=== PATIENT | female | born 1985 | race African-American/Black ===

== ENCOUNTER 2017-01-19 23:14 | Emergency (ER) | payer SELFPAY ==
[~2017-01-19 23:14] MED LIST: HYDR-971 PO; PENI250T85 PO
--- NOTE | 2017-01-19 23:22 | PHYS DOC ---
Past History Past Medical History: Other Additional Past Surgical Histo: laprascopic ovarian surgery Smoking: Cigarettes Alcohol Use: None Drug Use: Marijuana Adult General Chief Complaint Chief Complaint: Dental pain HPI HPI Patient is a 31 year old female who presents with dental pain. She was seen here in October for the same pain at that time was placed on penicillin and hydrocodone. She states this been back for 4 days. She states it hurts on the left side of her face, ear, eye. No nausea vomiting. No known fevers. She states she saw dentist but "they can't do anything until I get the infection treated". NO difficulty swallowing. No drooling. Review of Systems Review of Systems Constitutional: Denies fever or chills HENT: Denies nasal congestion or sore throat. Left jaw pain (upper) and left ear ache. Respiratory: Denies cough or shortness of breath GI: Denies abdominal pain, nausea, vomiting, bloody stools or diarrhea Neurologic: Denies headache, focal weakness or sensory changes Allergies Allergies Allergies Coded Allergies Type Severity Reaction Last Updated Verified No Known Drug Allergies 10/15/16 No Physical Exam Physical Exam Constitutional: Well developed, well nourished, no acute distress, non-toxic appearance. Holding an ice pack on the left side of her face. HENT: Normocephalic, atraumatic, bilateral external ears normal, oropharynx moist, no oral exudates, nose normal. Pain is left upper 3rd molar. No abscess detected. No buccal space swelling. No drooling; no stridor. Eyes: PERRLA, EOMI, conjunctiva normal, no discharge. Neck: Normal range of motion, no tenderness, supple, no stridor. Cardiovascular:Heart rate regular rhythm, no murmur Lungs & Thorax: Bilateral breath sounds clear to auscultation Skin: Warm, dry, no erythema, no rash. Extremities: No tenderness, no cyanosis, no clubbing, ROM intact, no edema. Neurologic: Alert and oriented X 3, normal motor function, normal sensory function, no focal deficits noted. Psychologic: Affect normal, judgement normal, mood normal. Current Patient Data Vital Signs Vital Signs Date Time Temp Pulse Resp B/P (MAP) Pulse Ox O2 Delivery O2 Flow Rate FiO2 01/19/17 23:24 97.6 108 20 97 Room Air BP 128/112 Course & Med Decision Making Course & Med Decision Making Evaluated patient; no evidence of acute airway compromise or abscess. Will dose with Toradol here (LMP one week ago-denies ) and amoxicillin here. Rx: Peridex, amox, Tramadol and naprosyn. Need to contact dentist again. Dragon Disclaimer Dragon Disclaimer This chart was dictated in whole or in part using Voice Recognition software in a busy, high-work load, and often noisy Emergency Department environment. It may contain unintended and wholly unrecognized errors or omissions. Departure Departure: Disposition: HOME, SELF-CARE Condition: GOOD Referrals: PCP,NO (PCP) Scripts Chlorhexidine Gluconate (PERIDEX) 15 Ml Mouthwash 15 ML PO BID for 7 Days, #946 ML Prov: DEIDRE ROMAN MD 01/19/17 Tramadol Hcl/Acetaminophen (TRAMADOL-ACETAMINOPHN 37.5-325) 1 Each Tablet 1 TAB PO Q4-6HRS Y for PAIN, #30 TAB Prov: DEIDRE ROMAN MD 01/19/17 Naproxen (NAPROSYN) 500 Mg Tablet 500 MG PO TID PRN Y for PAIN, #30 TAB Prov: DEIDRE ROMAN MD 01/19/17 Amoxicillin (AMOXICILLIN) 500 Mg Capsule 1 CAP PO TID, #30 CAP Prov: DEIDRE ROMAN MD 01/19/17 DEIDRE ROMAN MD January 19, 2017 23:22
[2017-01-19 23:24] VITALS: BP 128/112
[2017-01-19] MEDS ORDERED: CHLO15MO2 PO (23:33)
[2017-01-19] MEDS ORDERED: TRAM1TAB4 PO (23:33)
[2017-01-19] MEDS ORDERED: NAPR500T PO (23:33)
[2017-01-19] MEDS ORDERED: AMOX500C PO (23:33)
[2017-01-19] MEDS: KETOROLAC 60 MG/2 ML VIAL. IM ONE (23:39)
[2017-01-19] MEDS: AMOXICILLIN 500 MG CAPSULE PO ONE (23:39)
== END 2017-01-19 23:45 | disposition home or self-care (01) ==
LOC: ER 23:14
DX: K08.89 Other specified disorders of teeth and supporting structures (principal); F17.210 Nicotine dependence, cigarettes, uncomplicated; F12.10 Cannabis abuse, uncomplicated
CPT/HCPCS: 96372; 99283; J1885

== ENCOUNTER 2017-02-03 15:33 | Emergency (ER) | payer SELFPAY ==
[~2017-02-03 15:33] MED LIST changes: +AMOX500C PO; +CHLO15MO2 PO; +NAPR500T PO; +TRAM1TAB4 PO
[2017-02-03] MEDS ORDERED: PENI500T PO (16:38)
--- NOTE | 2017-02-03 16:38 | PHYS DOC ---
Past History Past Medical History: No Pertinent History Additional Past Surgical Histo: laprascopic ovarian surgery Smoking: Cigarettes Alcohol Use: None Drug Use: None Adult General Chief Complaint Chief Complaint: SORE THROAT HPI HPI 31-year-old female presenting to the emergency department with dental pain. Her pain is dull throbbing intermittent and nonradiating. She's had this pain for a few months and has not been able to have her Gus help her with this pain. Review of systems is negative for abdominal pain fevers chills chest pain or shortness of breath. All other review of systems is negative unless otherwise noted in history of present illness. Pertinent physical exam findings show no tongue elevation. No crepitus to palpation of the neck region. The patient does have an abscess on the inside of her roof of her mouth. There is no stridor present. She is able to swallow her secretions during my examination. ED course: 31-year-old female presenting with dental pain and dental abscess. Recommended the patient get into her dentist today or tomorrow. I prescribed penicillin I recommend ibuprofen and acetaminophen until that point. The patient was then discharged home in stable condition. They were to return if their symptoms worsened or if they were concerned for any reason. [id number] discharge instructions and return precautions were given. Patient's questions were answered to their satisfaction. Patient is comfortable plan. Review of Systems Review of Systems SEE ABOVE. Allergies Allergies Allergies Coded Allergies Type Severity Reaction Last Updated Verified No Known Drug Allergies 10/15/16 No Physical Exam Physical Exam Constitutional: Well developed, well nourished, no acute distress, non-toxic appearance. [] HENT: Normocephalic, atraumatic, bilateral external ears normal, oropharynx moist, no oral exudates, nose normal. [] Eyes: PERRLA, EOMI, conjunctiva normal, no discharge. [] Neck: Normal range of motion, no tenderness, supple, no stridor. [] Cardiovascular:Heart rate regular rhythm, no murmur [] Lungs & Thorax: Bilateral breath sounds clear to auscultation [] Abdomen: Bowel sounds normal, soft, no tenderness, no masses, no pulsatile masses. [] Skin: Warm, dry, no erythema, no rash. [] Back: No tenderness, no CVA tenderness. [] Extremities: No tenderness, no cyanosis, no clubbing, ROM intact, no edema. [] Neurologic: Alert and oriented X 3, normal motor function, normal sensory function, no focal deficits noted. [] Psychologic: Affect normal, judgement normal, mood normal. [] EKG EKG [] Radiology/Procedures Radiology/Procedures [] Course & Med Decision Making Course & Med Decision Making Pertinent Labs and Imaging studies reviewed. (See chart for details) [] Dragon Disclaimer Dragon Disclaimer This chart was dictated in whole or in part using Voice Recognition software in a busy, high-work load, and often noisy Emergency Department environment. It may contain unintended and wholly unrecognized errors or omissions. Departure Departure: Impression: Primary Impression: Pain, dental Additional Impression: Dental abscess Disposition: HOME, SELF-CARE Condition: STABLE Referrals: PCP,KAMILAH (PCP) MARLENE HAYDEN MD Patient Instructions: Dental Pain Additional Instructions: Thank you for allowing us to participate in your care today. I recommend you see a dentist today or tomorrow. Followup with your primary care physician in 3 days if your symptoms do not improve. If you do not have a primary care provider you can ask for a list of our primary care providers. Return to the emergency department you have any new or concerning findings. This should be evaluated by the primary care physician and any necessary consulting services for continued management within a few days after discharge. Return to emergency room if you have any new or concerning symptoms including but not limited to fever, chills, nausea, vomiting, intractable pain, any new rashes, chest pain, shortness of air, uncontrolled bleeding, difficulty breathing, and/or vision loss. Scripts Penicillin V Potassium (PENICILLIN V POTASSIUM) 500 Mg Tablet 1 TAB PO BID, #6 TAB Prov: KAREN RAMIREZ MD 02/03/17 Problem Qualifiers KAREN RAMIREZ MD February 03, 2017 16:38
[2017-02-03 16:50] VITALS: BP 141/86
== END 2017-02-03 16:50 | disposition home or self-care (01) ==
LOC: ER 15:33
DX: K04.7 Periapical abscess without sinus (principal); F17.210 Nicotine dependence, cigarettes, uncomplicated
CPT/HCPCS: 99283

== ENCOUNTER 2019-07-25 10:29 | Emergency (ER) | payer OTHER ==
[~2019-07-25 10:29] MED LIST changes: +HYDR-3165 PO; -HYDR-971 PO; +NAPR-683 PO; -NAPR500T PO; +PENI500T PO
--- NOTE | 2019-07-25 11:28 | PHYS DOC ---
Past History Past Medical History: Other Additional Past Medical Histor: hip dysplasia Past Surgical History: Other Additional Past Surgical Histo: laprascopic ovarian surgery Smoking: Cigarettes Alcohol Use: None Drug Use: None Adult General Chief Complaint Chief Complaint: HIP PAIN HPI HPI 34 yo female presents with left hip pain. It starting hurting her yesterday after work. She works at a fast food restaurant. She has had intermittent hip pain for many years. She had hip dysplasia as a child. She has been told she would need hip replacements a young age. She has been tolerating discomfort well most of the time, but when she woke up this morning she was unable to bear weight on this left leg. She feels like it swollen and she has had fluid drained from the hip joint in the past. She denies fever or chills. She denies falls or trauma. Review of Systems Review of Systems Constitutional: Denies fever or chills [] Eyes: Denies change in visual acuity, redness, or eye pain [] HENT: Denies nasal congestion or sore throat [] Respiratory: Denies cough or shortness of breath [] Cardiovascular: No additional information not addressed in HPI [] GI: Denies abdominal pain, nausea, vomiting, bloody stools or diarrhea [] : Denies dysuria or hematuria [] Musculoskeletal: Left hip pain[] Integument: Denies rash or skin lesions [] Neurologic: Denies headache, focal weakness or sensory changes [] Endocrine: Denies polyuria or polydipsia [] All other systems were reviewed and found to be within normal limits, except as documented in this note. Allergies Allergies Allergies Coded Allergies Type Severity Reaction Last Updated Verified No Known Drug Allergies 07/25/19 No Physical Exam Physical Exam Constitutional: Well developed, well nourished, no acute distress, non-toxic appearance. [] HENT: Normocephalic, atraumatic, bilateral external ears normal, oropharynx moist, no oral exudates, nose normal. [] Eyes: PERRLA, EOMI, conjunctiva normal, no discharge. [] Neck: Normal range of motion, no tenderness, supple, no stridor. [] Cardiovascular:Heart rate regular rhythm, no murmur [] Lungs & Thorax: Bilateral breath sounds clear to auscultation [] Abdomen: Bowel sounds normal, soft, no tenderness, no masses, no pulsatile masses. [] Skin: Warm, dry, no erythema, no rash. [] Back: No tenderness, no CVA tenderness. [] Extremities: Moderate to severe pain with palpation of the left lateral and anterior hip. No ecchymosis or obvious deformity.[] Neurologic: Alert and oriented X 3, normal motor function, normal sensory function, no focal deficits noted. [] Psychologic: Affect normal, judgement normal, mood normal. [] Current Patient Data Vital Signs Vital Signs Date Time Temp Pulse Resp B/P (MAP) Pulse Ox O2 Delivery O2 Flow Rate FiO2 07/25/19 10:58 97.8 101 18 99 Room Air EKG EKG [] Radiology/Procedures Radiology/Procedures [] Impressions: EXAM: Left hip and pelvis, 3 views. HISTORY: Pain. COMPARISON: None. FINDINGS: A frontal view of the pelvis and frontal and frog-leg views of the left hip are obtained. There is no fracture, dislocation or subluxation. There is marginal osteophyte formation involving the left femoral head. There is a tiny right os acetabulum. There are suspected bone islands within the right femoral head and left femoral head-neck junction. IMPRESSION: 1. Moderate osteoarthritis of the left hip with femoral head marginal osteophyte formation. 2. No acute osseous finding. Electronically signed by: Opal Goirdano MD (07/25/2019 11:59 AM) [facility] DICTATED AND SIGNED BY: OPAL GIORDANO MD DATE: 07/25/19 1159 CC: PONCHO NIXON DO; PCP,NO ~ Course & Med Decision Making Course & Med Decision Making Pertinent Labs and Imaging studies reviewed. (See chart for details) The patient's x-ray shows some arthritis with possible bone islands. I think the patient just overdid it and got her hip joint irritated. I have given her one [place] in the ED. I will discharge her on a short course of [place]. I will also advised further ibuprofen therapy and rest. She is stable for discharge at this time. [] Dragon Disclaimer Dragon Disclaimer This electronic medical record was generated, in whole or in part, using a voice recognition dictation system. Departure Departure: Impression: Primary Impression: Left hip pain Disposition: 01 HOME, SELF-CARE Condition: STABLE Referrals: PCP,NO (PCP) Patient Instructions: Hip Pain Scripts Hydrocodone Bit/Acetaminophen (NORCO 5-325 TABLET) 1 Each Tablet 1 TAB PO PRN Q6HRS PRN for PAIN, #10 TAB 0 Refills Prov: PONCHO NIXON DO 07/25/19 PONCHO NIXON DO Jul 25, 2019 11:28
[2019-07-25] MEDS ORDERED: HYDROcodone/APAP 7.5/325MG 1 TAB TABLET PO ONE (11:30)
[2019-07-25] MEDS ORDERED: NAPROXEN 500 MG TABLET PO ONE (11:30)
--- NOTE | 2019-07-25 12:01 | RAD ---
EXAM: Left hip and pelvis, 3 views. HISTORY: Pain. COMPARISON: None. FINDINGS: A frontal view of the pelvis and frontal and frog-leg views of the left hip are obtained. There is no fracture, dislocation or subluxation. There is marginal osteophyte formation involving the left femoral head. There is a tiny right os acetabulum. There are suspected bone islands within the right femoral head and left femoral head-neck junction. IMPRESSION: 1. Moderate osteoarthritis of the left hip with femoral head marginal osteophyte formation. 2. No acute osseous finding. Electronically signed by: Opal Giordano MD (07/25/2019 11:59 AM) [facility]
[2019-07-25] MEDS ORDERED: HYDR-3165 PO (12:43)
[2019-07-25 12:56] VITALS: BP 99/63
== END 2019-07-25 12:57 | disposition home or self-care (01) ==
LOC: ER 10:29
DX: M25.552 Pain in left hip (principal); M16.12 Unilateral primary osteoarthritis, left hip; F17.210 Nicotine dependence, cigarettes, uncomplicated
CPT/HCPCS: 73502; 99284

== ENCOUNTER 2020-01-22 13:31 | Emergency (ER) | payer OTHER ==
[~2020-01-22] VITALS: Ht 167.6 cm; Wt 70.4 kg
[2020-01-22 13:31] VITALS: BP 120/85
[2020-01-22] MEDS: AMOXICILLIN 250 MG CAPSULE PO ONE (14:34)
[2020-01-22] MEDS: HYDROcodone/APAP 5/325MG 1 TAB TABLET PO ONE (14:35)
[2020-01-22] MEDS ORDERED: AMOX500C PO (15:19)
[2020-01-22] MEDS ORDERED: NAPR-682 PO (15:19)
--- NOTE | 2020-01-22 15:19 | PHYS DOC ---
Past History Past Medical History: Ovarian Cyst, Other Additional Past Medical Histor: hip dysplasia Past Surgical History: Other Additional Past Surgical Histo: laprascopic ovarian surgery Smoking: Cigarettes Alcohol Use: None Drug Use: None General Adult EDM: Chief Complaint: Toothache HPI: HPI: Patient is a 34 YEARS old female who presented to the ER FOR EVALUATION of left upper tooth pain. Patient has dental caries in that area. She was chewing some food last night and her tooth broke,having pain since, called dentist but not able to get in so she was told to come here. Review of Systems: Review of Systems: Constitutional: Denies fever or chills Eyes: Denies change in visual acuity HENT: Denies nasal congestion or sore throat . positive for dental pain Respiratory: Denies cough or shortness of breath Cardiovascular: Denies chest pain or edema GI: Denies abdominal pain, nausea, vomiting, bloody stools or diarrhea : Denies dysuria Musculoskeletal: Denies back pain or joint pain Integument: Denies rash Neurologic: Denies headache, focal weakness or sensory changes Endocrine: Denies polyuria or polydipsia Lymphatic: Denies swollen glands Psychiatric: Denies depression or anxiety Heart Score: Risk Factors: Risk Factors: DM, Current or recent (<one month) smoker, HTN, HLP, family hi story of CAD, obesity. Risk Scores: Score 0 - 3: 2.5% MACE over next 6 weeks - Discharge Home Score 4 - 6: 20.3% MACE over next 6 weeks - Admit for Clinical Observation Score 7 - 10: 72.7% MACE over next 6 weeks - Early Invasive Strategies Current Medications: Current Meds: Current Medications Medications (Trade) Dose Ordered Sig/Zaheer Start Time Stop Time Status Last Admin Dose Admin Acetaminophen/ Hydrocodone Bitart (Lortab 5/325) 2 tab 1X ONCE 01/22/20 14:30 01/22/20 14:31 DC 01/22/20 14:35 2 TAB Amoxicillin (Amoxil) 1,000 mg 1X ONCE 01/22/20 14:30 01/22/20 14:31 DC 01/22/20 14:34 1,000 MG Allergies: Allergies: Allergies Coded Allergies Type Severity Reaction Last Updated Verified No Known Drug Allergies 07/25/19 No Physical Exam: PE: Constitutional: Well developed, well nourished, no acute distress, non-toxic appearance. [] HENT: Normocephalic, atraumatic, bilateral external ears normal, oropharynx moist, no oral exudates, nose normal. DENTAL DECAY LEFT UPPER JAW AREA, LEFT 1ST PREMOLAR ALREADY BROKEN OFF , ROOT STILL IN PLACE, LEFT 2ND PREMOLAR IS PARTIALLY BROKEN, THE TOOTH IS VERY LOOSE.NOT MUCH TISSUE ATTACHED TO GUM.. TENDER TO TOUCH... IT WAS PULLED OUT EASILY WHEN IT WAS EXAMINED, THE ROOT IS STILL IN PLACE. Eyes: PERRLA, EOMI, conjunctiva normal, no discharge. [] Neck: Normal range of motion, no tenderness, supple, no stridor. [] Cardiovascular:Heart rate regular rhythm, no murmur [] Lungs & Thorax: Bilateral breath sounds clear to auscultation [] Abdomen: Bowel sounds normal, soft, no tenderness, no masses, no pulsatile ma sses. [] Skin: Warm, dry, no erythema, no rash. [] Back: No tenderness, no CVA tenderness. [] Extremities: No tenderness, no cyanosis, no clubbing, ROM intact, no edema. [] Neurologic: Alert and oriented X 3, normal motor function, normal sensory function, no focal deficits noted. [] Psychologic: Affect normal, judgement normal, mood normal. [] Current Patient Data: Vital Signs: Vital Signs Date Time Temp Pulse Resp B/P (MAP) Pulse Ox O2 Delivery O2 Flow Rate FiO2 01/22/20 14:35 16 01/22/20 13:31 98.3 80 120/85 (97) 100 Room Air EKG: EKG: [] Radiology/Procedures: Radiology/Procedures: [] Course & Med Decision Making: Course & Med Decision Making Pertinent Labs and Imaging studies reviewed. (See chart for details) [] Dragon Disclaimer: Dragon Disclaimer: This electronic medical record was generated, in whole or in part, using a voice recognition dictation system. Departure Departure: Impression: Primary Impression: Dental decay Additional Impression: Dental caries of root surface Disposition: HOME/RESIDENCE PRIOR TO ADM Condition: STABLE Referrals: PCP,NO (PCP) please follow up with a dentist next week Patient Instructions: Dental Abscess, Dental Fracture Scripts Naproxen Sodium (ANAPROX DS) 550 Mg Tablet 1 TAB PO BID for dental pain for 15 Days, #30 TAB 0 Refills Prov: MARLENE HOROWITZ DO 01/22/20 Amoxicillin (AMOXICILLIN) 500 Mg Capsule 1 CAP PO TID for dental infection, #30 CAP Prov: MARLENE HOROWITZ DO 01/22/20 MARLENE HOROWITZ DO January 22, 2020 15:19
== END 2020-01-22 15:29 | disposition home or self-care (01) ==
LOC: ER 13:31
DX: K02.9 Dental caries, unspecified (principal); F17.210 Nicotine dependence, cigarettes, uncomplicated
CPT/HCPCS: 99283

== ENCOUNTER 2020-07-17 16:03 | Emergency (ER) | payer OTHER ==
[~2020-07-17] VITALS: Ht 167.6 cm; Wt 70.4 kg
[~2020-07-17 16:03] MED LIST changes: +NAPR-682 PO
[2020-07-17 17:05] VITALS: BP 127/58
[2020-07-17] MEDS ORDERED: cefTRIAXone IM 250 MG VIAL IM ONE (17:30)
[2020-07-17] MEDS ORDERED: metroNIDAZOLE 500 MG TABLET PO ONE (17:30)
[2020-07-17] MEDS ORDERED: ONDANSETRON ODT 4 MG TAB.RAPDIS PO ONE (17:30)
[2020-07-17] MEDS ORDERED: AZITHROMYCIN 250 MG TABLET. PO ONE (17:30)
--- NOTE | 2020-07-17 17:42 | PHYS DOC ---
Past History Past Medical History: No Pertinent History, Ovarian Cyst, Other Additional Past Medical Histor: hip dysplasia (SERGEY STOUT APRN) Past Surgical History: Other Additional Past Surgical Histo: laprascopic ovarian surgery (SERGEY STOUT APRN) Smoking: Cigarettes Alcohol Use: None Drug Use: None (SERGEY STOUT APRN) Adult General Chief Complaint Chief Complaint: SEXUALLY TRANSMITTED DISEASE HPI HPI Patient is a 35-year-old female patient presenting to the ED today for STD tr eatment. Patient reports she found the boyfriend with paperwork showing he was treated for STDs twice. Patient reports vaginal itching. Denies any chance she is . (SERGEY STOUT APRN) Review of Systems Review of Systems Constitutional: Denies fever or chills [] GI: Reports vaginal itching and concern for STDs denies abdominal pain, nausea, vomiting, bloody stools or diarrhea [] : Denies dysuria or hematuria [] Musculoskeletal: Denies back pain or joint pain [] Integument: Denies rash or skin lesions [] Neurologic: Denies headache, focal weakness or sensory changes [] All other systems were reviewed and found to be within normal limits, except as documented in this note. (SERGEY STOUT APRN) Current Medications Current Medications Current Medications Medications (Trade) Dose Ordered Sig/Zaheer Start Time Stop Time Status Last Admin Dose Admin Azithromycin (Zithromax) 1,000 mg 1X ONCE 07/17/20 17:30 07/17/20 17:32 DC 07/17/20 17:39 1,000 MG Ceftriaxone Sodium (Rocephin Im) 250 mg 1X ONCE 07/17/20 17:30 07/17/20 17:32 DC 07/17/20 17:39 250 MG Metronidazole (Flagyl) 2,000 mg 1X ONCE 07/17/20 17:30 07/17/20 17:32 DC 07/17/20 17:39 2,000 MG Ondansetron HCl (Zofran Odt) 4 mg 1X ONCE 07/17/20 17:30 07/17/20 17:32 DC 07/17/20 17:39 4 MG (SERGEY STOUT APRN) Allergies Allergies Allergies Coded Allergies Type Severity Reaction Last Updated Verified No Known Drug Allergies 07/25/19 No (SERGEY STOUT APRN) Physical Exam Physical Exam Constitutional: Well developed, well nourished, no acute distress, non-toxic appearance. [] Abdomen: Bowel sounds normal, soft, no tenderness, no masses, no pulsatile masses. [] Pelvic exam External pelvic appears normal, cervix is visualized, closed, no CMT, no adnexal tenderness, trace amount of white discharge in the vaginal vault Skin: Warm, dry, no erythema, no rash. [] Back: No tenderness, no CVA tenderness. [] Extremities: No tenderness, no cyanosis, no clubbing, ROM intact, no edema. [] Neurologic: Alert and oriented X 3, normal motor function, normal sensory function, no focal deficits noted. [] Psychologic: Affect normal, judgement normal, mood normal. [] (SERGEY STOUT APRN) Current Patient Data Vital Signs Vital Signs Date Time Temp Pulse Resp B/P (MAP) Pulse Ox O2 Delivery O2 Flow Rate FiO2 07/17/20 17:05 97 16 127/58 (81) 99 Room Air 07/17/20 17:02 98.0 Lab Results Laboratory Tests Test 07/17/20 17:30 POC Urine HCG, Qualitative hcg negative (Negative) (SERGEY STOUT APRN) EKG EKG [] (SERGEY STOUT APRN) Radiology/Procedures Radiology/Procedures [] (SERGEY STOUT APRN) Heart Score Risk Factors: Risk Factors: DM, Current or recent (<one month) smoker, HTN, HLP, family h istory of CAD, obesity. Risk Scores: Risk Factors: DM, Current or recent (<one month) smoker, HTN, HLP, family history of CAD, obesity. (SERGEY STOUT APRN) Course & Med Decision Making Course & Med Decision Making Pertinent Labs and Imaging studies reviewed. (See chart for details) This is a 35-year-old female patient presenting to the ED today for STD treatment. Negative urine hCG, urine analysis is negative, she was treated for STDs and discharged. Provided return precautions. (SERGEY STOUT APRN) Course & Med Decision Making I discussed the care of the patient with the MUD GRINDER/PA. I agree with the findings and plan of care as documented in the note above. (MIKEY SELLERS DO) Dragon Disclaimer Dragon Disclaimer This electronic medical record was generated, in whole or in part, using a voice recognition dictation system. (SERGEY STOUT APRN) Departure Departure: Impression: Primary Impression: Concern about STD in female without diagnosis Disposition: 01 DC HOME SELF CARE/HOMELESS Condition: STABLE Referrals: PCP,NO (PCP) follow up with your doctor in 1-2 weeks Patient Instructions: Constipation, Adult, [id number] Additional Instructions: You were treated for sexually transmitted diseases. Do not have any intercourse for 1 week. Use protection at all times. Contact all your partners, let them know you are treated for STDs and asked him to seek treatment. We will call you in 3 to 7 days if your tests come back positive for STDs SERGEY STOUT APRN Jul 17, 2020 17:42 MIKEY SELLERS DO Jul 18, 2020 21:31
[2020-07-17 18:09] LABS: CLARITY,URINE HAZY
[2020-07-17 18:10] LABS: BILIRUBIN,URINE NEG (NEG); COLOR,URINE AMBER; GLUCOSE,URINE NEG (NEG); NITRITE,URINE NEG (NEG); RBC,URINE RARE /HPF (0-2)
[2020-07-17 18:11] LABS: BACTERIA,URINE FEW /HPF (0-FEW); SQUAMOUS EPITHELIAL CELL,UR MANY /LPF
[2020-07-19 17:08] LABS: CHLAMYDIA PROBE Negative (Negative)
== END 2020-07-17 18:37 | disposition home or self-care (01) ==
LOC: ER 16:03
DX: Z20.2 Contact with and (suspected) exposure to infections with a predominantly sexual mode of transmission (principal); F17.210 Nicotine dependence, cigarettes, uncomplicated
CPT/HCPCS: 81001; 81025; 87491; 87591; 96372; 99284; J0456; J0696; Q0111; Q0162; 36415